=== PATIENT | female | born 1960 | race American Indian/Alaskan Native ===

== ENCOUNTER 2017-02-07 07:22 | Day surgery (SDC) | payer BC ==
[2017-01-28 12:02] VITALS: BMI 34.4
[2017-02-07] MEDS ORDERED: Sodium Chloride 0.9% 1,000 ML IV SCH (09:00)
[2017-02-07] MEDS ORDERED: Midazolam 2 MG/2 ML VIAL ONE (09:01)
[2017-02-07] MEDS ORDERED: Propofol 10 mg/ml Inj (20 ML) ONE (09:01)
[2017-02-07 09:49] VITALS: TEMP 98
[2017-02-07 10:49] VITALS: BP 142/79; PULSE 64; RESP 16; O2SAT 100
== END 2017-02-07 10:42 | disposition home or self-care (01) ==
LOC: ENDO 07:22
PROVIDERS: ATTEND Internal Medicine
DX: D12.7 Benign neoplasm of rectosigmoid junction (principal); D12.5 Benign neoplasm of sigmoid colon; K57.30 Diverticulosis of large intestine without perforation or abscess without bleeding; K64.8 Other hemorrhoids; E11.9 Type 2 diabetes mellitus without complications; K21.9 Gastro-esophageal reflux disease without esophagitis; E78.2 Mixed hyperlipidemia; R42 Dizziness and giddiness; M21.612 Bunion of left foot; M21.611 Bunion of right foot; Z80.3 Family history of malignant neoplasm of breast
CPT/HCPCS: 45380; 88305; J2250; J2704; J7040 ×2